=== PATIENT | female | born 1980 | race African-American/Black ===

== ENCOUNTER 2017-08-25 15:46 | Emergency (ER) | payer BC, SELFPAY | END 2017-08-25 16:35 | disposition home or self-care (01) | LOC: ERS 15:46 | DX: R04.0 Epistaxis (principal) | CPT/HCPCS: 99283 ==

== ENCOUNTER 2019-05-27 19:00 | Outpatient (CLI) | payer BC | END 2019-05-27 19:01 | disposition home or self-care (01) | LOC: SLEEPLAB 19:00 | PROVIDERS: ATTEND Family Medicine | DX: G47.33 Obstructive sleep apnea (adult) (pediatric) (principal); R53.83 Other fatigue; G44.209 Tension-type headache, unspecified, not intractable; R04.0 Epistaxis; G47.31 Primary central sleep apnea | CPT/HCPCS: 95806 ==

== ENCOUNTER 2019-06-19 19:30 | Outpatient (CLI) | payer BC | END 2019-06-19 19:31 | disposition home or self-care (01) | LOC: SLEEPLAB 19:30 | PROVIDERS: ATTEND Family Medicine | DX: G47.33 Obstructive sleep apnea (adult) (pediatric) (principal); R53.83 Other fatigue; E66.9 Obesity, unspecified | CPT/HCPCS: 95811 ==

== ENCOUNTER 2020-02-12 13:28 | Outpatient (CLI) | payer OTHER ==
--- NOTE | 2020-02-12 16:15 | MRI ---
MR OF THE LEFT KNEE WITHOUT CONTRAST INDICATION: 39-year-old with history of fall and left knee injury TECHNIQUE: Axial and coronal PD fat sat, sagittal T2 fat sat, sagittal PD turbo spin echo and T1 sarah nal images were obtained of the left knee. COMPARISON: Left foreleg radiograph dated May 24, 2016 FINDINGS: Joint effusion: None. Semimembranosus-medial gastrocnemius popliteal cyst: None. Ligaments: The ACL, PCL, MCL and LCLC are intact. Extensor mechanism: Intact. Menisci: There is a horizontally oriented tear involving the posterior junction and posterior horn of the medial meniscus. The lateral meniscus is intact. Articular cartilage: There is a partial-thickness articular surface fissure involving the medial haq llar facet measuring 1.7 mm. No full-thickness articular cartilage defect is evident Osseous structures: There is a very small suspected low-grade chondroid lesion involving the distal f emur measuring 6 mm on image 15 of series 4. Popliteus and IT band: Normal. IMPRESSION: 1. Medial meniscal tear. 2. Partial thickness articular surface fissure involving the medial patellar facet. 3. Small suspected low-grade chondroid lesion of the distal left femur. Correlation with recent radio graphs are recommended.
== END 2020-02-12 13:29 | disposition home or self-care (01) ==
LOC: SCSMRI 13:28
PROVIDERS: ATTEND Family Medicine
DX: S89.92XD Unspecified injury of left lower leg, subsequent encounter (principal); S83.242A Other tear of medial meniscus, current injury, left knee, initial encounter

== ENCOUNTER 2020-09-29 13:59 | Outpatient (CLI) | payer BC ==
[2020-09-29 15:31] LABS: Bilirubin Neg (Negative); Blood, Urine 10 (Negative); Clarity Clear (Clear); Glucose, Urine (Dipstick) Normal (Negative); Ketone, Urine Negative (Negative); Leukocyte Negative (Negative); Nitrite Negative (Negative); Protein, Urine (Dipstick) Negative (Neg-Trace); Specific Gravity, Urine 1.015 (1.002-1.036); Urobilinogen Normal mg/dL (Less than 2)
[2020-09-29 15:42] LABS: #Eosinphils 0.1 10x3/uL (0.0-0.5); #Monocytes 0.6 10x3/uL (0.0-1.1); %Basophils 0.6 % (0.0-2.0); %Eosinophils 1.4 % (0.0-6.0); %Lymphocytes 24.7 % (18.0-47.0); %Monocytes 8.9 % (0.0-10.0); %Neutrophils 63.8 % (40.0-75.0); Hemoglobin 11.2 g/dL (12.0-15.5); Mean Corpuscular HGB CONC 29.2 g/dL (32.0-36.0); Mean Corpuscular Hemoglobin 19.1 pg (27.0-33.0); Mean Corpuscular Volume 65.5 fl (81.6-98.3); Mean Platelet Volume 9.8 fl (7.4-10.4); Platelet Count 365 10x3/uL (150-450); RBC Distribution Width 17.5 % (11.5-14.5); Red Blood Cell (RBC) Count 5.85 10x6/uL (3.90-5.03); White Blood Cell (WBC) Count 6.3 10x3/uL (3.5-10.5)
[2020-09-29 15:44] LABS: Bacteria/HPF Rare-Few HPF (None Seen); RBC/HPF 0-3 HPF (0-3); Squamous Epithelial 0-3 HPF (0-3); WBC/HPF 0-3 HPF (0-3)
[2020-09-29 16:07] LABS: Anion Gap 15 mmol/L (10-20); BUN (Urea Nitrogen) 10 mg/dL (7.0-18.7); Calc. Creatinine Clearance 0 mL/min (70-130); Calcium 8.8 mg/dL (7.8-10.44); Carbon Dioxide 22 mmol/L (22-29); Chloride 107 mmol/L (98-107); Glucose 99 mg/dL (70-105); Potassium 4.2 mmol/L (3.5-5.1); Sodium 140 mmol/L (136-145)
[2020-09-29 16:28] LABS: BHCG - Serum Negative (NEGATIVE); Pregs Control Background? CLEAR/WHITE (CLR/WHITE); Pregs Control Bar Appear? YES (CONTROL BAR)
[2020-09-29 19:45] LABS: Anisocytosis SLIGHT = 6-15 cells (100X) (0-5/hpf)
[2020-09-29 19:46] LABS: Microcytosis SLIGHT = 6-15 cells (100X) (0-5/hpf)
[2020-09-29 19:47] LABS: Tear Drops SLIGHT = 2-5 cells (100X) (0-1/hpf)
[2020-09-29 19:48] LABS: Elliptocytes SLIGHT = 2-5 cells (100X) (0-1/hpf); Platelet Morphology Comment Appears Adequate
[2020-09-29 19:52] LABS: Reflex for Review?? YES
[2020-09-30 04:50] LABS: SARS-CoV-2 PCR by NAA Not Detected (NotDetected)
== END 2020-09-29 14:00 | disposition home or self-care (01) ==
LOC: LABBT 13:59
PROVIDERS: ATTEND Orthopaedic Surgery
DX: Z01.818 Encounter for other preprocedural examination (principal); S83.242A Other tear of medial meniscus, current injury, left knee, initial encounter; Z20.822 Contact with and (suspected) exposure to COVID-19
CPT/HCPCS: 80048; 81001; 84703; 85025; 85060; 87635; 93005; 93010; U0003; U0005

== ENCOUNTER 2020-10-02 07:37 | Day surgery (SDC) | payer OTHER ==
[2020-10-01 12:18] VITALS: BMI 38.7
[2020-10-02] MEDS ORDERED: PROPOFOL 0 ML ONE (09:51)
[2020-10-02] MEDS ORDERED: Fentanyl 100 MCG/2 ML VIAL ONE ×4 (10:28→12:21)
[2020-10-02] MEDS ORDERED: Midazolam HCl 2 mg/2 ml Vial ONE (10:48)
[2020-10-02] MEDS ORDERED: diphenhydrAMINE 50 MG/ML VIAL ONE ×2 (10:49→13:06)
[2020-10-02] MEDS ORDERED: Lidocaine 1% PF 5 ML VIAL ONE (10:49)
[2020-10-02] MEDS ORDERED: Ondansetron PF 4 MG/2 ML Vial ONE (10:49)
[2020-10-02] MEDS ORDERED: PROPOFOL 200 MG/20 ML VIAL ONE (10:49)
[2020-10-02] MEDS ORDERED: Metoclopramide HCl 10 MG/2 ML VIAL ONE (10:49)
[2020-10-02] MEDS ORDERED: Bupivacaine PF 0.5% 30 ML VIAL ONE (11:10)
[2020-10-02] MEDS ORDERED: HYDROcodone/Acetaminophen 5/325 mg Tablet ONE (14:51)
== END 2020-10-02 15:26 | disposition home or self-care (01) ==
LOC: SDC 07:37
PROVIDERS: ATTEND Orthopaedic Surgery
PROC: 0SBD4ZZ Excision of Left Knee Joint, Percutaneous Endoscopic Approach (ICD-10-PCS; principal; 2020-10-02)
DX: M67.52 Plica syndrome, left knee (principal); Z87.891 Personal history of nicotine dependence; Z79.899 Other long term (current) drug therapy; Z88.5 Allergy status to narcotic agent; Z88.8 Allergy status to other drugs, medicaments and biological substances
CPT/HCPCS: J0690; J1200; J2250; J2405; J2704; J2765; J3010; S0020

== ENCOUNTER 2021-03-08 12:50 | Outpatient (CLI) | payer OTHER | END 2021-03-08 12:51 | disposition home or self-care (01) | LOC: TBSIIMAG 12:50 | PROVIDERS: ATTEND Orthopaedic Surgery | DX: S89.92XD Unspecified injury of left lower leg, subsequent encounter (principal); R60.0 Localized edema ==

== ENCOUNTER 2022-05-13 15:51 | Outpatient (CLI) | payer MEDICAID | END 2022-05-13 15:52 | disposition home or self-care (01) | LOC: BICMAMMO 15:51 | PROVIDERS: ATTEND Nurse Practitioner Women's Health | DX: Z12.31 Encounter for screening mammogram for malignant neoplasm of breast (principal); R92.8 Other abnormal and inconclusive findings on diagnostic imaging of breast; Z80.3 Family history of malignant neoplasm of breast | CPT/HCPCS: 77067 ==